=== PATIENT | male | born 1955 | race Caucasian/White ===

== ENCOUNTER 2017-09-02 17:48 | Emergency (ER) | payer BC ==
[2017-09-02 18:00] VITALS: BP 146/81
--- NOTE | 2017-09-02 18:23 | UC ---
Knee Pain HPI - HPI Summary HPI Summary: Patient is a 62-year-old male presenting to the with chief complaint of right knee pain after stepping off of his tractor this morning, feeling a "pop" sound and states he has been having lateral knee pain since that time. He has remained ambulatory, but states he is limping due to pain. He has not taken anything [id number] for relief. He has not used ice or heat. He has been wearing a brace that he has had home. Left hip surgery 8 years ago so he states he favors the right side. Denies any numbness or tingling. There is a mild amount of swelling to the knee. - History of Current Complaint Hx Obtained From: Patient Onset/Duration: Sudden Onset Severity Initially: Mild Severity Currently: Mild Pain Intensity: 5 Pain Scale Used: 0-10 Numeric Character: Aching Aggravating Factor(s): Weight Bearing Alleviating Factor(s): Rest Associated Signs And Symptoms: Positive: Swelling Able to Bear Weight: Yes - Risk Factors Septic Arthritis Risk Factor: Negative Gout Risk Factor: Age ^ 38, Male <Cely Orozco - Last Filed: 09/02/17 19:08> <Kim Langston - Last Filed: 09/02/17 19:29> - History of Current Complaint Chief Complaint: UCLowerExtremity Stated Complaint: RIGHT KNEE INJURY Time Seen by Provider: 09/02/17 18:04 - Allergies/Home Medications Allergies/Adverse Reactions: Allergies Allergy/AdvReac Type Severity Reaction Status Date / Time diphenhydramine Allergy Hallucinati Verified 09/02/17 18:02 [From Benadryl] ons Iodinated Contrast- Oral and Allergy Unknown Verified 09/02/17 18:02 IV Dye Reaction Details Home Medications: Home Medications Atorvastatin* [Lipitor 10 MG*] 10 mg PO DAILY 09/02/17 [History Confirmed ] PMH/Surg Hx/FS Hx/Imm Hx Previously Healthy: Yes - Surgical History Surgical History: Yes Surgery Procedure, Year, and Place: APPENDECTOMY, 4 LITHOTRIPSYS, LT HIP REPLACEMENT - Family History Known Family History: Positive: Cardiac Disease, Other - cancer - Social History Occupation: Employed Full-time Lives: With Family Alcohol Use: None Substance Use Type: None Smoking Status (MU): Never Smoked Tobacco <Cely Orozco - Last Filed: 09/02/17 19:08> Review of Systems Constitutional: Negative Skin: Negative ENT: Negative Respiratory: Negative Cardiovascular: Negative Motor: Negative Neurovascular: Negative Musculoskeletal: Arthralgia Neurological: Negative Is Patient Immunocompromised?: No All Other Systems Reviewed And Are Negative: Yes <Cely Orozco Yuki - Last Filed: 09/02/17 19:08> Physical Exam Triage Information Reviewed: Yes Appearance: Well-Appearing, Well-Nourished Vital Signs: Initial Vital Signs Temp 97.5 F 09/02/17 17:55 Pulse 69 09/02/17 17:55 Resp 20 09/02/17 17:55 BP 146/81 09/02/17 17:55 Pulse Ox 97 09/02/17 17:55 Vital Signs Reviewed: Yes Eye Exam: Normal Eyes: Positive: Conjunctiva Clear Neck exam: Normal Neck: Positive: Supple, Nontender, No Lymphadenopathy Respiratory Exam: Normal Respiratory: Positive: Chest non-tender, Lungs clear Cardiovascular Exam: Normal Cardiovascular: Positive: RRR Musculoskeletal: Positive: ROM Limited @ - R knee - d/t pain Psychological Exam: Normal Psychological: Positive: Normal Response To Family <Cely Orozco Yuki - Last Filed: 09/02/17 19:08> Vital Signs: Initial Vital Signs Temp 97.5 F 09/02/17 17:55 Pulse 69 09/02/17 17:55 Resp 20 09/02/17 17:55 BP 146/81 09/02/17 17:55 Pulse Ox 97 09/02/17 17:55 <Kim Langston - Last Filed: 09/02/17 19:29> Knee Pain Course/Dx - Course Course Of Treatment: During the course of treatment, the patient is evaluated for right knee pain and swelling after stepping off his tractor this morning. He states he has been ambulating, but with pain. Thorough physical exam was performed, focusing on knee special tests. Pain on palpation over lateral aspect and superior aspect of knee with mild amount of effusion. Due to patient pain around injury, physical exam was limited. Valgus and varus force without pain. No posterior sag sign, -posterior drawer test, - anterior drawer test. Quadriceps active test negative. Mcmurrys test not performed. No laxity in the joint noted. No temperature change or pallor noted bilaterally. No ecchymosis noted over knee. No lesion or disruption of skin is seen. Able to bear weight but with pain. Knee immobilizer given. Crutches given. Pulses intact bilaterally. patient will follow up with ortho. - Differential Dx/Diagnosis Provider Diagnoses: Knee pain <Cely Orozco - Last Filed: 09/02/17 19:08> Discharge - Sign-Out/Discharge Documenting (check all that apply): Discharge/Admit/Transfer - Billing Disposition and Condition Condition: STABLE Disposition: HOME <Cely Orozco - Last Filed: 09/02/17 19:08> - Billing Disposition and Condition Condition: STABLE Disposition: HOME <Kim Langston - Last Filed: 09/02/17 19:29> - Discharge Plan Condition: Stable Disposition: HOME Patient Education Materials: Knee Pain (ED) Referrals: Caleb Ames MD [Primary Care Provider] - Peter Hardy MD [Medical Doctor] - Additional Instructions: Please follow up with Dr. Hardy Call tomorrow to make appt Keep the knee immobilizer applied while ambulating Use crutches to ambulate Attestation Statement User Type: Provider - I was available for consult. This patient was seen by the SHAYE. The patient was not presented to, seen by, or examined by me. -Courtney <Kim Langston - Last Filed: 09/02/17 19:29>
--- NOTE | 2017-09-02 18:38 | RAD ---
Indication: Unstable RIGHT knee with flexion following injury today. Comparison: None. Technique: RIGHT knee: AP, tunnel, lateral, sunrise views. Report: Negative for joint effusion, fracture, or malalignment. Mild osteophytosis and mild medial joint space narrowing. Unremarkable soft tissue contours. IMPRESSION: 1. No traumatic injury of the RIGHT knee evident. 2. Kellgren and Leonard grade 2 osteoarthritis.
== END 2017-09-02 19:00 | disposition home or self-care (01) ==
LOC: UCEAST 17:48
DX: M25.561 Pain in right knee (principal); M17.11 Unilateral primary osteoarthritis, right knee; Z91.041 Radiographic dye allergy status; Z88.8 Allergy status to other drugs, medicaments and biological substances
CPT/HCPCS: 99202; G0463

== ENCOUNTER 2018-03-23 17:20 | Emergency (ER) | payer BC ==
[2018-03-23 18:00] VITALS: BP 143/97
--- NOTE | 2018-03-23 18:19 | UC ---
Shoulder Pain HPI - HPI Summary HPI Summary: 62-year-old male comes to clinic today after falling and hurting his right scapula and shoulder. He reports slipping and falling on the ice and he landed primarily on the right scapula. The pain is the worst in the right scapula but this also pain in the right shoulder. He denies any shortness of breath or difficulty breathing or any neck pain or head injury. No numbness or weakness. Pain is worse with attempted movement of the right arm. He does have decreased range of motion of the right arm secondary to pain. - History of Current Complaint Chief Complaint: UCUpperExtremity Stated Complaint: SHOULDER INJURY Time Seen by Provider: 03/23/18 18:07 Pain Intensity: 5 - Allergies/Home Medications Allergies/Adverse Reactions: Allergies Allergy/AdvReac Type Severity Reaction Status Date / Time diphenhydramine Allergy Hallucinati Verified 03/23/18 18:00 [From Benadryl] ons gabapentin Allergy Altered Verified 03/23/18 18:01 Mental Status Iodinated Contrast- Oral and Allergy Unknown Verified 03/23/18 18:00 IV Dye Reaction Details Home Medications: Home Medications Cholecalciferol TAB* [Vitamin D TAB*] 1 tab PO DAILY 03/23/18 [History Confirmed 03/23/18] Vitamin B Complex CAP* [B Complex CAP*] 1 tab PO DAILY 03/23/18 [History Confirmed 03/23/18] PMH/Surg Hx/FS Hx/Imm Hx Previously Healthy: Yes Endocrine History: Dyslipidemia - Surgical History Surgical History: Yes Surgery Procedure, Year, and Place: APPENDECTOMY, 4 LITHOTRIPSYS, LT HIP REPLACEMENT - Family History Known Family History: Positive: Cardiac Disease, Other - cancer - Social History Alcohol Use: None Substance Use Type: None Smoking Status (MU): Never Smoked Tobacco Review of Systems All Other Systems Reviewed And Are Negative: Yes Constitutional: Positive: Negative Skin: Positive: Negative Eyes: Positive: Negative ENT: Positive: Negative Respiratory: Positive: Negative Cardiovascular: Positive: Negative Gastrointestinal: Positive: Negative Motor: Positive: Decreased ROM Neurovascular: Positive: Negative Musculoskeletal: Positive: Other: - SEE HPI Neurological: Positive: Negative Psychological: Positive: Negative Is Patient Immunocompromised?: No Physical Exam Triage Information Reviewed: Yes Appearance: Well-Appearing, No Pain Distress, Well-Nourished Vital Signs: Initial Vital Signs Temp 98.5 F 03/23/18 17:57 Pulse 68 03/23/18 17:57 Resp 18 03/23/18 17:57 BP 143/97 03/23/18 17:57 Pulse Ox 99 03/23/18 17:57 Vital Signs Reviewed: Yes Eye Exam: Normal Eyes: Positive: Conjunctiva Clear Neck exam: Normal Neck: Positive: Supple, Nontender Respiratory: Positive: Lungs clear, Normal breath sounds, No respiratory distress, Other: - Right scapula is tender to palpation there is some swelling of the right scapula. Shoulder joint also is mildly tender. Cardiovascular: Positive: RRR Musculoskeletal: Positive: Other: - Fingers wrists and elbows have full range of motion and full strength. Normal radial pulses bilaterally. Left shoulder has full range of motion. Right shoulder gives some pain if he tries to forearm extension abduction or internal rotation. There is swelling and tenderness over the distribution of the right scapula. Neurological Exam: Normal Neurological: Positive: Alert, Muscle Tone Normal Psychological Exam: Normal Psychological: Positive: Age Appropriate Behavior Skin Exam: Normal Shoulder Course/Dx - Course Course Of Treatment: I discussed the x-rays with the patient. I do not see an acute fracture on the right shoulder and scapula x-ray. Radiologist reading is pending. He will use a sling when necessary. I demonstrated shoulder range of motion exercises to help avoid frozen shoulder. Past follow-up primary care doctor. If things get worse she needs to get a reevaluation. On examination today there is no evidence of rib fracture or pneumothorax seen on the shoulder x-ray. If he does not improve or has decreased range of motion with shoulder over the long-term he'll need follow-up with orthopedics. Taking ibuprofen as needed for the pain. - Differential Dx/Diagnosis Provider Diagnosis: Contusion of scapula, right, Right shoulder strain Discharge - Sign-Out/Discharge Documenting (check all that apply): Patient Departure All imaging exams completed and their final reports reviewed: No - Discharge Plan Condition: Stable Disposition: HOME Patient Education Materials: Contusion in Adults (ED), Shoulder Sprain (ED) Referrals: Caleb Ames MD [Primary Care Provider] - Additional Instructions: FOLLOW UP WITH YOUR DOCTOR. DO THE RANGE OF MOTION EXERCISES DISCUSSED TO HELP AVOID FROZEN SHOULDER. GET RECHECKED FOR ANY WORSENING OF YOUR CONDITION; PAIN, SHORTNESS OF BREATH, YOU FEEL LIKE PASSING OUT, YOU FEEL ILL OR QUESTIONS OR CONCERNS. - Billing Disposition and Condition Condition: STABLE Disposition: Home
--- NOTE | 2018-03-24 13:36 | UC ---
- Progress Note Progress Note: X-RAY REPORT REVIEWED. OSTEOARTHRITIS BUT NO FRACTURE SEEN. NO CHANGE IN MANAGEMENT. Course/Dx - Diagnoses Provider Diagnoses: Contusion of scapula, right, Right shoulder strain Discharge - Sign-Out/Discharge Documenting (check all that apply): Post-Discharge Follow Up All imaging exams completed and their final reports reviewed: Yes - Discharge Plan Condition: Stable Disposition: HOME Patient Education Materials: Contusion in Adults (ED), Shoulder Sprain (ED) Referrals: Caleb Ames MD [Primary Care Provider] - Additional Instructions: FOLLOW UP WITH YOUR DOCTOR. DO THE RANGE OF MOTION EXERCISES DISCUSSED TO HELP AVOID FROZEN SHOULDER. GET RECHECKED FOR ANY WORSENING OF YOUR CONDITION; PAIN, SHORTNESS OF BREATH, YOU FEEL LIKE PASSING OUT, YOU FEEL ILL OR QUESTIONS OR CONCERNS. - Billing Disposition and Condition Condition: STABLE Disposition: Home
== END 2018-03-23 19:03 | disposition home or self-care (01) ==
LOC: UCEAST 17:20
DX: S43.401A Unspecified sprain of right shoulder joint, initial encounter (principal); W00.0XXA Fall on same level due to ice and snow, initial encounter; Y92.9 Unspecified place or not applicable; Z88.8 Allergy status to other drugs, medicaments and biological substances; Z91.041 Radiographic dye allergy status; S40.011A Contusion of right shoulder, initial encounter
CPT/HCPCS: 99212; G0463